=== PATIENT | female | born 1995 | race African-American/Black ===

== ENCOUNTER 2019-01-28 21:36 | Emergency (ER) | payer OTHER ==
[~2019-01-28] VITALS: Ht 167.6 cm; Wt 63.5 kg
[2019-01-28] MEDS ORDERED: NOHOMEMEDICATIONS (22:00)
[2019-01-28 22:15] LABS: URINE BILIRUBIN NEGATIVE (Negative); URINE BLOOD 3+ (Negative); URINE CLARITY CLEAR; URINE COLOR YELLOW; URINE GLUCOSE-RANDOM* NEGATIVE (Negative); URINE KETONES NEGATIVE (Negative); URINE LEUKOCYTES-REFLEX NEGATIVE (Negative); URINE NITRITE-REFLEX NEGATIVE (Negative); URINE PROTEIN (DIPSTICK) NEGATIVE (Negative); URINE SPECIFIC GRAVITY 1.025 (1.005-1.035); URINE UROBILINOGEN 0.2 E.U./dl (0.2-1.0)
[2019-01-28 22:50] LABS: MUCUS 0-3 Light strn/LPF (None Seen); SQUAMOUS 0-3 Few /LPF (0-3)
[2019-01-28 22:51] LABS: BACTERIA-REFLEX None Seen /HPF (None Seen); CASTS None Seen /LPF (None Seen); CRYSTALS None Seen /LPF (None Seen); URINE RBC 3-10 Few /HPF (0-2); URINE WBC-REFLEX None Seen /HPF (0-5)
[2019-01-28 23:07] LABS: ABSOLUTE NEUTROPHILS 7.6 thou/uL (1.4-8.2); BASOPHILS 0.8 % (0.0-2.0); EOSINOPHILS 2.2 % (0.0-3.0); HEMATOCRIT 36.1 % (37.0-47.0); HEMOGLOBIN 12.3 gm/dL (12.0-15.0); LYMPHOCYTES 18.1 % (24.0-44.0); MCH 32.2 pg (26.0-34.0); MCV 94.7 fL (80.0-100.0); PLATELET COUNT 307 thou/uL (150-400); POLYS 71.9 % (36.0-66.0); RBC 3.82 mil/uL (4.20-5.00); RDW 13.4 % (10.5-14.5); WBC 10.6 thou/uL (4.0-11.0)
[2019-01-28 23:20] LABS: CALCIUM 8.5 mg/dL (8.5-10.1); CREATININE 0.7 mg/dL (0.6-1.0); POTASSIUM 3.5 mmol/L (3.5-5.1)
[2019-01-28 23:26] LABS: ALBUMIN 3.5 g/dL (3.4-5.0); TOTAL BILIRUBIN 0.4 mg/dL (<0.1-1.0); TOTAL PROTEIN 7.1 g/dL (6.4-8.2)
[2019-01-28] MEDS ORDERED: TRAMADOL 50 MG50 MG PO (23:56)
[2019-01-28] MEDS ORDERED: ZOFRAN ODT4 MG DISSOLVE (23:56)
[2019-01-28] MEDS ORDERED: NAPROSYN500 MG PO (23:56)
[2019-01-29 00:12] VITALS: BP 108/70
[2019-01-29] MEDS ORDERED: AUGMENTIN 875-1 EACH PO (00:21)
== END 2019-01-29 00:12 | disposition home or self-care (01) ==
LOC: ER 21:36
PROVIDERS: Emergency Medicine; Nurse Practitioner Family
DX: K80.70 Calculus of gallbladder and bile duct without cholecystitis without obstruction (principal)

== ENCOUNTER 2019-04-11 05:26 | Day surgery (SDC) | payer OTHER ==
[~2019-04-11] VITALS: Ht 167.6 cm; Wt 63.5 kg
[~2019-04-11 05:26] MED LIST: ADDERALL 10 MG10 MG PO; ALEVE220 MG PO; AUGMENTIN 875-1 EACH PO; IBUPROFEN 200200 M1 PO; NAPROSYN500 MG PO; NOHOMEMEDICATIONS; TRAMADOL 50 MG50 MG PO; TYLENOL325 M1 PO; ZOFRAN ODT4 MG DISSOLVE
[2019-04-11 12:30] VITALS: BP 108/71
[2019-04-11 15:43] VITALS: BP 108/71
[2019-04-11 15:47] VITALS: BP 108/71
--- NOTE | 2019-04-13 16:16 | O ---
[facility] [place] [address] OPERATIVE REPORT Name: RAVIN STEELE Room #: DEP [facility] M..#: [id number] Admission: 04/11/19 ������������������ Attend Phys: Ray Springer MD Discharge: 04/11/19 ������������������ Date of : [birth year] Report #: [id number] THIS REPORT FOR: //name// CC: MAYA Springer PRIMARY CARE PHYSICIAN: Dr. Maya Crystal. PREOPERATIVE DIAGNOSIS: Symptomatic cholelithiasis. POSTOPERATIVE DIAGNOSIS: Symptomatic cholelithiasis. OPERATIVE PROCEDURE DONE: Laparoscopic cholecystectomy. OPERATING SURGEON: Ray Springer MD. INDICATION FOR PROCEDURE: The patient is a 23-year-old female who presents with complaints of recurrent episodes of right upper quadrant pain. Clinical exam and ultrasound scan that was done showed features of symptomatic cholelithiasis. The patient was advised laparoscopic cholecystectomy. The patient showed understanding and agreed to proceed. DESCRIPTION OF PROCEDURE: After explaining to the patient in detail and informed consent was obtained., the patient was identified in the preoperative holding area. The patient was transferred to the operating room and placed in supine position. Sequential compression devices were placed for DVT prophylaxis. Preoperative antibiotics were given. After induction of anesthesia, the abdomen was prepped and draped in a sterile fashion. Through a right upper quadrant 1 cm incision using I Optiview technique, peritoneal cavity was entered. Prior to this, I had to create a pneumoperitoneum through a left upper quadrant Veress needle technique. On initial inspection, the gallbladder appeared normal. This was retracted, and the peritoneal reflection along the neck of the gallbladder was gently dissected out. Cystic duct was identified and isolated from surrounding structures. Cystic artery was identified and was isolated from the surrounding structures and clipped proximally and single clip applied distally and then divided. Cystic artery also was then divided in a similar fashion. The gallbladder was gently dissected off the liver bed using hook electrocautery. Absolute hemostasis was achieved. Thorough saline irrigation was given. The gallbladder was retrieved using an EndoCatch through the lateral most incision. Incisions were then closed with 4-0 Monocryl. Dermabond was applied. The patient was stable at the end of the procedure. The patient was awoken from anesthesia and was transferred to the recovery room in stable condition. ESTIMATED BLOOD LOSS: [address] [address] OPERATIVE REPORT Name: IVETTERAVIN Room #: DEP [facility]#: [id number] Admission: 04/11/19 ������������������ Attend Phys: Ray Springer MD Discharge: 04/11/19 ������������������ Date of : [birth year] Report #: [id number] CONDITION OF THE PATIENT: Stable. FLUIDS GIVEN: Per anesthesia notes. SPECIMEN SENT: Gallbladder. COMPLICATIONS: None. ANESTHESIA: General anesthesia. ��������������������������������������������� <ELECTRONICALLY SIGNED> ���������������������������������������� By: Ray Springer MD ��������������������������������������������� 04/13/19 1616 1540 1553 Ray Springer MD /nt
--- NOTE | 2019-04-14 11:06 | PATH ---
[facility] [address] [address] PATHOLOGY RPT PROCEDURE Name: PRICILA CATES Room #: DEP [facility] M.R.#: [id number] ������������������ Admission: 04/11/19 ������������������ Date of : [birth year] Discharge: 04/11/19 Report #: [id number] Path Case #: [id number] [facility] Accession Number: [id number] . 01 Material submitted: . gallbladder - GALLBLADDER . 01 Clinical history: . Cholecystitis . 02 Diagnosis: Gallbladder, cholecystectomy: - Chronic cholecystitis, mild. - Cholelithiasis. . (SKM:ruma; 04/13/2019) [facility]/04/13/2019 . 02 Electronically signed: . Lucas Membreno MD, Pathologist NPI- [id number] . 01 Gross description: . The specimen is received in formalin labeled "Pricila Cates, gallbladder" and consists of an intact green-kam, smooth, and shiny gallbladder measuring 8.6 cm in length and up to 2.4 cm in diameter. The margin is inked black. Opening reveals a lumen filled with viscous green bile and 2 black spiculated calculi measuring 0.8 cm and 0.9 cm. The mucosa is green and velvety with an average wall thickness of 0.1 cm. No masses are identified. Meter Reader Chief sections are submitted in A1. (SDY; 04/12/2019) SYU/SYU . 02 Pathologist provided ICD-10: K80.10 . 02 CPT . 383152 Specimen Comment: A courtesy copy of this report has been sent to Specimen Comment: [phone], . Specimen Comment: Report sent to / DR SHAH Performed at: 01 [place] [id number] [address] [id number] MD Gonzalo Santana MD Phone: [phone] Performed at: 02 [facility] [address] [place] [address] PATHOLOGY RPT PROCEDURE Name: CATESPRICILA Room #: DEP [facility].#: [id number] ������������������ Admission: 04/11/19 ������������������ Date of : [birth year] Discharge: 04/11/19 Report #: [id number] Path Case #: [id number] [address] [place] [id number] MD Elif Hernandez MD Phone: [phone]
== END 2019-04-11 16:30 | disposition home or self-care (01) ==
LOC: TBA 05:26 → OR 05:26 → TBA 05:27 → OR 06:08
DX: K80.10 Calculus of gallbladder with chronic cholecystitis without obstruction (principal); Z79.899 Other long term (current) drug therapy; Z98.890 Other specified postprocedural states
CPT/HCPCS: 50010; 50101; 50411; 50555; 51489; 52265; 52266; 53310; 54022; 54118; 55245; 56462; 56525; 56526; 57257; 62110; 62900; 70005